=== PATIENT | male | born 1985 | race Hispanic/Latino ===

== ENCOUNTER 2021-01-27 12:48 | Emergency (ER) | payer MEDICAID, OTHER ==
[2021-01-27] MEDS ORDERED: DEXAMETHASONE SOD PHOSPHATE 10MG/ML 1ML VIAL ONE (13:06)
[2021-01-27] MEDS ORDERED: KETOROLAC TROMETHAMINE 60 MG/2 ML VIAL ONE (13:06)
== END 2021-01-27 13:55 | disposition home or self-care (01) ==
LOC: EDH 12:48
DX: M10.9 Gout, unspecified (principal)
CPT/HCPCS: 36415; 73610; 84550; 96372 ×2; 99284; J1100; J1885

== ENCOUNTER 2021-02-09 21:56 | Emergency (ER) | payer MEDICAID ==
[2021-02-09] MEDS ORDERED: COLCHICINE 0.6 MG TABLET ONE (22:18)
[2021-02-09] MEDS ORDERED: ACETAMINOPHEN-CODEINE 300/30MG TAB ONE (22:19)
[2021-02-09] MEDS ORDERED: KETOROLAC TROMETHAMINE 60 MG/2 ML VIAL ONE (22:19)
== END 2021-02-09 22:36 | disposition home or self-care (01) ==
LOC: EDH 21:56
DX: M10.9 Gout, unspecified (principal)
CPT/HCPCS: 96372; 99283; J1885

== ENCOUNTER 2021-03-05 04:59 | Emergency (ER) | payer MEDICAID ==
[2021-03-05] MEDS ORDERED: SODIUM CHLORIDE 0.9% 1000ML 1,000 ML IV ONE (05:31)
[2021-03-05] MEDS ORDERED: DiphenhydrAMINE HCL 50 MG/ML VIAL ONE (05:31)
[2021-03-05] MEDS ORDERED: FAMOTIDINE/PF 20 MG/2 ML VIAL IV ONE (05:31)
[2021-03-05] MEDS ORDERED: METHYLPREDNISOLONE SOD SUCC 125MG/2ML VIAL ONE (05:31)
== END 2021-03-05 07:04 | disposition home or self-care (01) ==
LOC: EDH 04:59
DX: L50.0 Allergic urticaria (principal)
CPT/HCPCS: 96365; 96375; 99284; J1200; J2930; J3490; J7030; 96361; 96374